=== PATIENT | female | born 1965 | race Caucasian/White ===

== ENCOUNTER 2019-07-03 09:52 | Inpatient (IN) | payer OTHER ==
[2019-07-02 21:30] VITALS: BP 137/88
[~2019-07-03] VITALS: Ht 162.6 cm; Wt 70.7 kg
--- NOTE | ~2019-07-03 | OP ---
[address] [address] OPERATIVE REPORT Name: ALYSSIA LOPEZ Room: [address] IN M.R.#: [id number] Admission: 07/03/19 Attend Phys: Luis Alberto Willett DO Discharge: Date of : 69 Report #: [id number] THIS REPORT FOR: //name// CC: Luis Alberto Alonzo NP DATE OF SERVICE: 07/03/2019 PREOPERATIVE DIAGNOSIS: Cholecystitis. POSTOPERATIVE DIAGNOSIS: Cholecystitis plus intraabdominal adhesions. PROCEDURE: Laparoscopic cholecystectomy converted to laparotomy and open cholecystectomy with lysis of adhesions lasting 1 hour. SURGEON: Luis Alberto Willett DO. GERM DRIER: Nathan Parra DO ANESTHESIA: General endotracheal. ESTIMATED BLOOD LOSS: 50 mL. COMPLICATIONS: None other than having to convert to open procedure. REFERRING PHYSICIAN: 1. Dr. Zhou Mendoza. 2. Althea Alonzo nurse practitioner. DESCRIPTION OF PROCEDURE: After obtaining proper consents and discussing risks and complications with the patient and family in the preoperative holding area, she was taken to the operating room, laid in the supine position, administered general endotracheal anesthetic. She was then prepped and draped in the usual sterile fashion. A timeout was performed. We confirmed the appropriate patient and procedure. Preoperative antibiotics were given. SCDs were in place. We then made a small supraumbilical skin incision through the patient's previous midline incision. This was carried down through the skin into the subcutaneous tissue using electrocautery for hemostasis. Once the fascia was encountered, it was grasped and elevated with Sonya clamps. I then grasped the peritoneum and this was opened sharply. I was then able to place a finger within the peritoneal cavity. There did appear to be multiple adhesions in this area; however, I was able to sweep my finger around enough where I felt that it was safe enough to place a blunt Robbie trocar through this hole. I then placed 2-0 [place] [address] OPERATIVE REPORT Name: ALYSSIA LOPEZ Room: [address] IN .R.#: [id number] Admission: 07/03/19 Attend Phys: Luis Alberto Willett DO Discharge: Date of : 69 Report #: [id number] Vicryl sutures in a [id number] fashion to secure the Robbie trocar. I then inserted the Robbie trocar and immediately identified adhesions throughout the abdominal cavity. I was able to see up over the liver and what appeared to be the gallbladder just underneath that, but other than that, I was unable to visualize anything else and the entire abdomen was full of adhesions. So very quickly, we determined that we would not be able to place any more ports because of the adhesions and we elected to convert to an open procedure as I had discussed with the patient in the office and also preoperatively in the preoperative holding area. At this point, we stopped the insufflation. The Robbie trocar was removed. I then made a right subcostal incision, which was carried down through the skin into the subcutaneous tissue using electrocautery for hemostasis. We then identified the rectus fascia. The fascia was opened out laterally to the oblique muscles as well. I then divided the rectus muscle using electrocautery. The posterior fascia and peritoneum were then identified, the fascia was opened, the peritoneum was then grasped and elevated with hemostats and sharply opened using Metzenbaum scissors. Once within the peritoneum, I was able to identify the liver and what appeared to be the gallbladder, but there were still quite a few adhesions in this area and it appeared that the colon and small bowel were adherent to the liver and gallbladder. Once the peritoneum was opened for the entire length of the incision, I then cautiously began taking down adhesions until I was able to visualize the gallbladder, the adhesions were from the abdominal wall just in this area in order to be able to take out the gallbladder. This took approximately one hour of dissection. I was then able to grasp and elevate the gallbladder and dissected free from the surrounding bowel using blunt dissection with my finger as well as Metzenbaum scissors and electrocautery to maintain hemostasis. Once the anterior portion of the gallbladder was freed, I then elected to take the gallbladder down in a dome down fashion. I then used electrocautery as well as blunt dissection with Metzenbaum scissors and right angle clamp as well in order to dissect the gallbladder all the way down until it was attached only by the cystic duct and cystic artery. The cystic artery was dissected free, was clipped proximally and distally, and then divided between clips. The gallbladder then remained only attached by the cystic duct and then, placed 3 clips proximally on the cystic duct using large Ligaclips. I then divided the cystic duct and passed the gallbladder off the specimen. We then assured hemostasis in the area using electrocautery. We copiously irrigated. I also checked to assure there was no leak of bile. Finding none, I then began to closing. We used a 0 PDS suture to close the posterior fascia and peritoneum together. We then reapproximated the muscles using a 2-0 Vicryl suture. The anterior fascia was then closed using a running 0 Prolene suture. The subcutaneous tissues were closed using 3-0 Vicryl suture. Skin was closed using yonny. We also closed the supraumbilical incision with the 2 previously placed 0 Vicryl sutures, plus 3 additional 0 Vicryl sutures. That skin incision was also closed using yonny. Sterile dressings were placed. The wounds were injected with 0.5% Marcaine without epinephrine. The patient was then awakened in the operating room and transported to recovery [place] [address] OPERATIVE REPORT Name: ALYSSIA LOPEZ Room: [address] IN [facility]#: [id number] Admission: 07/03/19 Attend Phys: Luis Alberto Willett DO Discharge: Date of : 69 Report #: [id number] Sponge, needle, and instrument counts were all correct x 3 at the end of the procedure. By: [id number] 1935Ayareli Willett DO /kobi
[~2019-07-03 09:52] MED LIST: ACETAMINOPHEN325 MG PO; AZITHROMYCIN PO; B12INJ PO; CENTRUM MU9 MG/15 ML PO; COLACE100 MG PO; FIBERCON625 M1 PO; FOLIC ACID0.8 MG PO; HARD NAILS2500 MCG PO; LAXATIVE5 MG PO; LEXAPRO20 MG; MAGNESIUM500 MG PO; MILK OF MA2400 MG/10 PO; MIRALAX17 GM PO; NOHOMEMEDICATIONS; OMEGA-3 KRILL1 EACH PO; PREDNISONE 10 M10 MG PO; REMICADE 1100 MG/VIA IV; SERTRALINE HCL50 MG PO; VITAMIN D3400 UNIT PO; WELLBUTRIN 75 M75 M1 PO; [UNRECOGNIZED DRUG - OTHER] PO
[2019-07-03 16:00] VITALS: BP 123/75
--- NOTE | 2019-07-03 17:15 | NUR ---
PATIENT ADMITTED FROM SURGERY. OPEN CHOLEY. DRESSING TO ABD INTACT, SMALL AMOUNT OF DRAINAGE NOTED TO UMBILICAL DRESSING. NO FURTHER SKIN BREAKDOWN NOTED. IV SL. [address], 02 SAT 95% ON CONT PULSE OX. PATIENT REMINDED TO TAKE DEEP BREATHS. PRN TRAMADOL GIVEN FOR ABD PAIN, PATIENT SLEEPING AFTER GIVEN. CLEAR LIQUID DIET AND MAY ADVANCE TOLERATED. SCD'S IN PLACE. ORIENTED TO CALL LIGHT. CALL LIGHT WITHIN REACH, WILL CONTINUE TO MONITOR.
[2019-07-03 21:30] VITALS: BP 137/88
[2019-07-04] VITALS: BP 114/75
[2019-07-04 04:00] VITALS: BP 120/69
[2019-07-04 05:49] LABS: ABSOLUTE LYMPHOCYTES 1.7 thou/uL (0.8-5.3); ABSOLUTE MONOCYTES 1.1 thou/uL (0.0-1.2); ABSOLUTE NEUTROPHILS 8.2 thou/uL (1.6-8.1); BASOPHILS 0.1 %; HEMATOCRIT 37.5 % (37.0-47.0); HEMOGLOBIN 12.1 gm/dL (12.0-15.0); LYMPHOCYTES 15.2 %; MCH 30.6 pg (26.0-34.0); MCHC 32.3 g/dL (28.0-37.0); MCV 94.8 fL (80.0-100.0); MONOCYTES 9.6 %; MPV 7.9 fl. (7.2-11.1); NUCLEATED RBCS 0 /100WBC; PLATELET COUNT* 220 thou/uL (150-400); POLYS 75.1 %; RBC 3.96 mil/uL (4.20-5.00); RDW-CV 14.2 % (10.5-14.5)
[2019-07-04 05:57] LABS: CALCIUM 8.4 mg/dL (8.5-10.1); CREATININE 0.6 mg/dL (0.6-1.3); POTASSIUM 3.9 mmol/L (3.5-5.1)
--- NOTE | 2019-07-04 05:57 | NUR ---
PATIENT HAS SLEPT OFF AND ON DURING THE NIGHT. VSS ON 3L 02 VIA NASAL CANNULA. PATIENT IS UP WITH SBA TO THE BATHROOM. MEDICATIONS GIVEN ORDERED AND CHARTED. ASSESSMENT CHARTED. DRESSING TO ABDOMEN AND UMBILICAL AREA ARE C/D/I. IV IN LEFT FOREARM-SL. PATIENT INSTRUCTED TO USE CALL LIGHT WHEN NEEDING ASSISTANCE. HOURLY ROUNDS MADE. WILL CONTINUE WITH PLAN OF CARE AND NURSING TO MONITOR.
[2019-07-04 07:30] VITALS: BP 97/65
[2019-07-04 16:01] VITALS: BP 101/70
--- NOTE | 2019-07-04 16:04 | NUR ---
PATIENT UP AND AMBULATING AROUND HALLS WITHOUT DIFFICULTY. IS GIVEN AND PATIENT UTILIZING. IV REMAINS SL. ICE PACK TO ABD AND PILLOW FOR SPLINTING. DRESSING REMOVED AND REAPPLIED TO ABD ORDERED. PATIENT REPORTS BELCHING BUT HAS NOT PASSED FLATUS YET AT THIS TIME. PRN TRAMADOL AND TORADOL GIVEN FOR PAIN WITH GOOD RELIEF NOTED.
[2019-07-04 20:45] VITALS: BP 98/59
[2019-07-05] VITALS: BP 112/69
[2019-07-05 04:00] VITALS: BP 124/72
[2019-07-05 04:20] LABS: HEMATOCRIT 31.8 % (37.0-47.0); HEMOGLOBIN 10.8 gm/dL (12.0-15.0); MPV 6.9 fl. (7.2-11.1); RBC 3.49 mil/uL (4.20-5.00)
[2019-07-05 04:36] LABS: CALCIUM 8.2 mg/dL (8.5-10.1); CREATININE 0.5 mg/dL (0.6-1.3); POTASSIUM 3.2 mmol/L (3.5-5.1)
--- NOTE | 2019-07-05 05:38 | NUR ---
PATIENT HAS SLEPT OFF AND ON DURING THE NIGHT. VSS ON RA. PATIENT STILL HAS SOME C/O ABDOMINAL PAIN AND NOT PASSING GAS. MEDICATIONS GIVEN ORDERED AND CHARTED. PATIENT IS UP AD-BRANDEN. DRESSING TO ABDOMEN IS C/D/I. IV IN LEFT FOREARM-SL. PATIENT INSTRUCTED TO USE CALL LIGHT WHEN NEEDING ASSISTANCE. HOURLY ROUNDS MADE. WILL CONTINUE WITH PLAN OF CARE AND NURSING TO MONITOR.
[2019-07-05 07:15] VITALS: BP 126/74
--- NOTE | 2019-07-05 13:07 | PATH ---
[address] [address] PATHOLOGY RPT PROCEDURE Name: ALYSSIA DONALD Room: [address] IN .R.#: [id number] Admission: 07/03/19 Date of : 69 Discharge: Report #: [id number] Path Case #: [id number] [facility] Accession Number: [id number] . 01 Material submitted: . gallbladder - GALLBLADDER WITH CONTENTS . 01 Clinical history: . Calculus of gallbladder without cholecystitis without obstruction . 02 Diagnosis: Gallbladder with contents: - Chronic cholecystitis with cholesterolosis. See comment. (GREGG:pit; 07/05/2019) [facility] 07/05/2019 1050 Local . 02 Comment: No gallstones were identified in the submitted specimen. (GREGG:pit; 07/05/2019) . 02 Electronically signed: . Nguyễn Hi MD, Pathologist NPI- [id number] . 01 Gross description: . The specimen is received in formalin, labeled "Alyssia Donald gallbladder with contents". Received is a previously punctured gallbladder measuring 7.9 x 3.3 x 1.6 cm in greatest dimensions displaying a blue-joy serosal surface. Opening the specimen reveals a velvety, bile-stained mucosa with mild, diffuse cholesterolosis, and with a gallbladder wall thickness of 0.1 cm. Calculi are not present upon filtration of the gallbladder and specimen container, and no masses or lesions are noted grossly. Financial Administration Officer sections, to include the proximal margin, are submitted in cassette A1. (CAA; 07/04/2019) QAC/QAC 07/04/2019 0941 Local . 02 Pathologist provided ICD-10: K81.1, K82.4 . 02 CPT . 880693 Specimen Comment: A courtesy copy of this report has been sent to Specimen Comment: [phone], , . Specimen Comment: Report sent to ,DR DUMONT / DR BOWERS Performed at: [address] [facility] [address], [place] [id number] [place] [address] PATHOLOGY RPT PROCEDURE Name: ALYSSIA DONALD Room: [address] IN M.R.#: [id number] Admission: 07/03/19 Date of : 69 Discharge: Report #: [id number] Path Case #: [id number] MD Girish Rosario MD Phone: [phone] Performed at: 02 [facility] [address] [place], [place], [place] [id number] MD Nguyễn Hi MD Phone: [phone]
[2019-07-05 16:00] VITALS: BP 112/72
--- NOTE | 2019-07-05 17:17 | NUR ---
PT REMAINED ALERT AND ORIENTED. PT C/O PAIN AND NAUSEA MEDS GIVEN ORDERED. PT HAD BM TODAY. PT WLAKED HALLS. FALL RISK PRECAUTIONS IN PLACE. HOURLY ROUNDING COMPLETED. WILL CONTINUE TO MONITOR.
[2019-07-05 19:50] VITALS: BP 103/68
[2019-07-06 04:02] LABS: CALCIUM 8.2 mg/dL (8.5-10.1); CREATININE 0.6 mg/dL (0.6-1.3); POTASSIUM 3.2 mmol/L (3.5-5.1)
--- NOTE | 2019-07-06 06:25 | NUR ---
PT ALERT AND ORIENTED. VSS ON RA. ASSESSMENT DOCUMENTED. UP AD BRANDEN. MEDS GIVEN PER EMAR. PT GIVEN PAIN MEDS BOTH SCHLD AND PRN FOR NECK PAIN. PT ALSO GOT GAS X TO HELP TO WITH GAS PAIN. PT PASSING FLATUS. PT SLEPT OFF AND ON THIS SHIFT. PT AMBULATED THE HALLWAY MULTIPLE TIMES THIS AM. CALL LIGHT WITHIN REACH. HOURLY ROUNDINGS MADE. ANTICIPATED DC TODAY. WILL CONTINUE TO MONITOR.
[2019-07-06 07:30] VITALS: BP 111/71
[2019-07-06] MEDS ORDERED: TRAMADOL 50 MG50 MG PO (11:51)
[2019-07-06 12:01] VITALS: BP 111/71
--- NOTE | 2019-07-06 17:40 | NUR ---
ASSUMED CARE OF PATIENT AT APPROX 0730. ALERT AND ORIENTED X4. ASSESSMENT COMPLETED AND CHARTED. VSS ON ROOM AIR. PAIN MANAGED WITH ORAL MEDICATIONS. POTASSIUM REPLACED ORDERED. INCISION SITE ON ABDOMEN CLOSED WITH AUDIE AND INCISION SHOWS NO SIGNS OF INFECTION, OPEN TO AIR. PATIENT DISCHARGED AT 1445 WITH ALL PERSONAL BELONGINGS, PRESCRIPTION AND DISCHARGE INSTRUCTIONS.
== END 2019-07-06 14:45 | disposition home or self-care (01) | DRG 415 ==
LOC: M.SUR 09:52 → M.TBA 13:59 → M.ORTHSURG 13:59
PROVIDERS: Surgery; ADMIT Surgery
PROC: 0DNW0ZZ Release Peritoneum, Open Approach (ICD-10-PCS; principal; 2019-07-03)
PROC: 0FJ44ZZ Inspection of Gallbladder, Percutaneous Endoscopic Approach (ICD-10-PCS; principal; 2019-07-03)
PROC: 0FT40ZZ Resection of Gallbladder, Open Approach (ICD-10-PCS; principal; 2019-07-03)
DX: K80.10 Calculus of gallbladder with chronic cholecystitis without obstruction (principal); E87.1 Hypo-osmolality and hyponatremia; K50.90 Crohn's disease, unspecified, without complications; E87.6 Hypokalemia; Z88.6 Allergy status to analgesic agent; Z90.710 Acquired absence of both cervix and uterus; Z90.49 Acquired absence of other specified parts of digestive tract

== ENCOUNTER 2019-08-19 19:02 | Inpatient (IN) | payer OTHER ==
[~2019-08-19] VITALS: Ht 162.6 cm; Wt 82.3 kg
[~2019-08-19 19:02] MED LIST changes: +TRAMADOL 50 MG50 MG PO
[2019-08-19 19:16] VITALS: BP 139/98
[2019-08-19 20:09] LABS: ABSOLUTE BASOPHILS 0.1 thou/uL (0.0-0.2); ABSOLUTE LYMPHOCYTES 2.8 thou/uL (0.8-5.3); ABSOLUTE NEUTROPHILS 13.6 thou/uL (1.6-8.1); BASOPHILS 0.4 %; EOSINOPHILS 0.1 %; HEMATOCRIT 44.1 % (37.0-47.0); LYMPHOCYTES 16.1 %; MCH 30.6 pg (26.0-34.0); MCHC 34.1 g/dL (28.0-37.0); MCV 89.7 fL (80.0-100.0); MONOCYTES 5.7 %; MPV 7.1 fl. (7.2-11.1); NUCLEATED RBCS 0 /100WBC; PLATELET COUNT* 472 thou/uL (150-400); POLYS 77.7 %; RBC 4.91 mil/uL (4.20-5.00); RDW-CV 14.2 % (10.5-14.5); WBC 17.6 thou/uL (4.0-11.0)
[2019-08-19 20:17] LABS: CALCIUM 10.6 mg/dL (8.5-10.1); POTASSIUM 3.8 mmol/L (3.5-5.1)
[2019-08-19 20:31] LABS: ALBUMIN 3.9 g/dL (3.4-5.0); TOTAL BILIRUBIN 0.5 mg/dL (<0.1-1.0); TOTAL PROTEIN 8.4 g/dL (6.4-8.2)
[2019-08-20 00:24] VITALS: BP 120/70
[2019-08-20 00:25] VITALS: BP 135/85
[2019-08-20 07:05] VITALS: BP 108/69
[2019-08-20 07:27] LABS: NUCLEATED RBCS 0 /100WBC; RDW-CV 14.3 % (10.5-14.5)
[2019-08-20 07:29] LABS: ABSOLUTE LYMPHOCYTES 1.7 thou/uL (0.8-5.3); ABSOLUTE MONOCYTES 0.8 thou/uL (0.0-1.2); BASOPHILS 0.5 %; EOSINOPHILS 0.5 %; HEMOGLOBIN 11.4 gm/dL (12.0-15.0); LYMPHOCYTES 19.4 %; MCH 30.4 pg (26.0-34.0); MCHC 33.6 g/dL (28.0-37.0); MCV 90.5 fL (80.0-100.0); MONOCYTES 9.7 %; MPV 7.5 fl. (7.2-11.1); PLATELET COUNT* 316 thou/uL (150-400); POLYS 69.9 %; RBC 3.76 mil/uL (4.20-5.00); WBC 8.6 thou/uL (4.0-11.0)
[2019-08-20 07:44] LABS: ALBUMIN 2.7 g/dL (3.4-5.0); CREATININE 0.8 mg/dL (0.6-1.3); MAGNESIUM 1.7 mg/dL (1.8-2.4); POTASSIUM 4.1 mmol/L (3.5-5.1); TOTAL BILIRUBIN 0.5 mg/dL (<0.1-1.0); TOTAL PROTEIN 6.1 g/dL (6.4-8.2)
[2019-08-20 08:29] LABS: ESR (SEDRATE) 16 mm/hr (0-30)
[2019-08-20 12:39] VITALS: BP 108/69
[2019-08-20 20:00] VITALS: BP 105/61
[2019-08-20 23:06] LABS: HEPATITIS B SURFACE AG Negative (Negative)
[2019-08-21] VITALS: BP 107/72
[2019-08-21 04:00] VITALS: BP 107/69
[2019-08-21 04:47] LABS: HEMATOCRIT 31.9 % (37.0-47.0); HEMOGLOBIN 10.6 gm/dL (12.0-15.0); MCH 30.2 pg (26.0-34.0); MCHC 33.3 g/dL (28.0-37.0); MCV 90.8 fL (80.0-100.0); MPV 7.4 fl. (7.2-11.1); RBC 3.52 mil/uL (4.20-5.00); RDW-CV 14.1 % (10.5-14.5); WBC 10.2 thou/uL (4.0-11.0)
[2019-08-21 05:06] LABS: ALBUMIN 2.5 g/dL (3.4-5.0); CALCIUM 8.3 mg/dL (8.5-10.1); CREATININE 0.6 mg/dL (0.6-1.3); MAGNESIUM 1.9 mg/dL (1.8-2.4); POTASSIUM 3.4 mmol/L (3.5-5.1); TOTAL BILIRUBIN 0.3 mg/dL (<0.1-1.0); TOTAL PROTEIN 5.6 g/dL (6.4-8.2)
[2019-08-21 05:54] LABS: URINE BILIRUBIN NEGATIVE (Negative); URINE BLOOD NEGATIVE (Negative); URINE CLARITY CLEAR; URINE COLOR YELLOW; URINE GLUCOSE-RANDOM NEGATIVE (Negative); URINE KETONES NEGATIVE (Negative); URINE LEUKOCYTES-REFLEX NEGATIVE (Negative); URINE NITRITE-REFLEX NEGATIVE (Negative); URINE PROTEIN NEGATIVE (Negative); URINE SPECIFIC GRAVITY >= 1.030 (1.005-1.030); URINE UROBILINOGEN 0.2 E.U./dl (0.2-1.0)
[2019-08-21 08:11] VITALS: BP 123/71
[2019-08-21 12:06] VITALS: BP 106/65
--- NOTE | 2019-08-21 12:06 | EKG ---
[place] [address] ELECTROCARDIOGRAM REPORT Name: CHANDAN LOPEZEN Britney Room: [address] ADM IN M.R.#: [id number] Admission: 08/19/19 Attend Phys: Leobardo Owusu, Discharge: Date of : 69 Report #: [id number] THIS REPORT FOR: //name// [facility] ED Test Date: 2019-08-19 Test Time: 23:20:13 Pat Name: ALYSSIA LOPEZ Department: Room: [address] Gender: F Teacher'S Aide: : 1965 Requested By: Lis Calloway Order Number: [id number] David MD: Koffi Yuo Measurements Intervals [place] Rate: 90 P: 51 IN: 170 QRS: 22 QRSD: 93 T: 0 QT: 404 QTc: 495 Interpretive Statements Sinus rhythm Borderline prolonged QT interval Compared to ECG 10/24/2006 13:28:17 ST (T wave) deviation no longer present Electronically Signed On 08-21-2019 12:06:29 FISHING TOOL SUPERVISOR by Koffi You [email or web address] <ELECTRONICALLY SIGNED> By: Koffi You MD, [facility] 08/21/19 1206 2320 2320 Koffi You MD, [facility] /EPI
[2019-08-21 16:44] VITALS: BP 107/66
[2019-08-21 20:00] VITALS: BP 116/75
[2019-08-22] VITALS: BP 115/67
[2019-08-22 04:30] VITALS: BP 120/72
[2019-08-22 05:41] LABS: HEMATOCRIT 29.1 % (37.0-47.0); HEMOGLOBIN 9.7 gm/dL (12.0-15.0); MCH 30.3 pg (26.0-34.0); MCHC 33.3 g/dL (28.0-37.0); MCV 90.9 fL (80.0-100.0); RBC 3.2 mil/uL (4.20-5.00); RDW-CV 14.2 % (10.5-14.5); WBC 8.7 thou/uL (4.0-11.0)
[2019-08-22 05:57] LABS: ALBUMIN 2.4 g/dL (3.4-5.0); CALCIUM 7.9 mg/dL (8.5-10.1); CREATININE 0.5 mg/dL (0.6-1.3); MAGNESIUM 1.9 mg/dL (1.8-2.4); POTASSIUM 3.1 mmol/L (3.5-5.1); TOTAL BILIRUBIN 0.5 mg/dL (<0.1-1.0); TOTAL PROTEIN 5.4 g/dL (6.4-8.2)
--- NOTE | 2019-08-22 06:53 | CON ---
[address] [address] CONSULTATION Name: ALYSSIA LOPEZ Room: [address] IN .R.#: [id number] Admission: 08/19/19 Attend Phys: Leobardo Owusu, Discharge: Date of : 69 Report #: [id number] THIS REPORT FOR: //name// CC: FAM unknown Leobardo Owusu DATE OF SERVICE: 08/20/2019 HISTORY OF PRESENT ILLNESS: This is a pleasant 54-year-old female with past medical history significant for cholelithiasis, who is presenting for evaluation of abdominal pain. The patient also has a history of Crohn's disease for which she follows up with Dr. Mendoza in the past, was treated with Remicade. Currently, she is not on any medication. The patient required open cholecystectomy in mid June due to extensive adhesions. The patient reports at this time around, she began experiencing epigastric abdominal pain that was localized, nonradiating. The pain became progressively severe over the last couple of days when she presented to the hospital. The patient reports this is associated with nausea and vomiting. The patient denies any fevers, chills, hematemesis, hematochezia or weight loss. PAST MEDICAL HISTORY: Crohn's disease, cholelithiasis. PAST SURGICAL HISTORY: Cholecystectomy in June. SOCIAL HISTORY: The patient denies smoking, uses alcohol occasionally. Denies any recreational drug use. FAMILY HISTORY: Significant for inflammatory bowel disease. REVIEW OF SYSTEMS: Comprehensive 10-point review of systems is negative except for what was mentioned in the history of present illness. PHYSICAL EXAMINATION: GENERAL: The patient is alert, awake, oriented x 3. HEENT: Pupils are equal, round, reactive to light and accommodation. Mucous membranes are moist. There is no congestion. LUNGS: Clear to auscultation bilaterally. CARDIOVASCULAR: Rate and rhythm regular, S1, S2 present. ABDOMEN: Soft. There is no distention. Mild tenderness and guarding is noted in the epigastric region. EXTREMITIES: Warm, well perfused, no edema. SKIN: Warm and dry. VITAL SIGNS: Temperature 37.1, pulse rate 81, blood pressure 108/69, pulse ox 97% on room air. LABORATORY DATA: Hemoglobin 11.4, hematocrit 34.0, WBC count 8.6, [place] [address] CONSULTATION Name: ALYSSIA LOPEZ Room: [address] IN [facility]#: [id number] Admission: 08/19/19 Attend Phys: Leobardo Owusu, Discharge: Date of : 69 Report #: [id number] count 316. Sodium 142, potassium 4.1, chloride 105, bicarbonate 29, BUN 8, creatinine 0.8, total bilirubin 0.5, AST 743, ALT 589, alkaline phosphatase 126. IMAGING: Abdominal ultrasound demonstrates a dilated common bile duct measuring up to 12 mm; calcification noted in the neck of the cystic duct felt to represent a dilated cystic duct remnant with stones. Mild intrahepatic ductal dilation also noted mildly prominent small bowel loops with fluid filled measuring up to 3.5 cm. Slight thickening of the small bowel along the midline anastomosis, small bowel follow through should be considered to evaluate these areas, prior history of cholecystectomy, appendectomy, hysterectomy and ileocolonic anastomosis in the left lower quadrant. ASSESSMENT AND PLAN: Pleasant 54-year-old female with past medical history significant for Crohn's and cholelithiasis is presenting with abdominal pain. The patient noted to have pancreatitis with CBD dilation and elevated AST, ALT, suggestive of obstructing stone. We will proceed with ERCP, sphincterotomy, stone extraction. With regard to her Crohn's disease, I would recommend starting her on a course of steroids, prednisone 40 mg p.o. to be tapered over the course of 2 months. The patient can choose to follow up with either Dr. Mendoza with our service for management of her Crohn's. Thank you for this consultation. <ELECTRONICALLY SIGNED> By: Mejia Martinez MD 08/22/19 0653 1331 1937Mejia Martinez MD /nt
[2019-08-22 16:48] VITALS: BP 115/69
[2019-08-23 04:00] VITALS: BP 121/77
[2019-08-23 04:37] LABS: HEMOGLOBIN 9.6 gm/dL (12.0-15.0); MCH 30.2 pg (26.0-34.0); MCHC 33.1 g/dL (28.0-37.0); MCV 91.3 fL (80.0-100.0); MPV 7.4 fl. (7.2-11.1); RBC 3.17 mil/uL (4.20-5.00); RDW-CV 14.4 % (10.5-14.5); WBC 12.7 thou/uL (4.0-11.0)
[2019-08-23 04:56] LABS: ALBUMIN 2.3 g/dL (3.4-5.0); CALCIUM 8.3 mg/dL (8.5-10.1); CREATININE 0.5 mg/dL (0.6-1.3); MAGNESIUM 1.8 mg/dL (1.8-2.4); POTASSIUM 3.7 mmol/L (3.5-5.1); TOTAL BILIRUBIN 0.5 mg/dL (<0.1-1.0); TOTAL PROTEIN 5.9 g/dL (6.4-8.2)
[2019-08-23 07:55] VITALS: BP 106/59
[2019-08-23 16:00] VITALS: BP 113/72
[2019-08-23 21:10] VITALS: BP 113/66
[2019-08-24 06:29] LABS: HEMATOCRIT 26.6 % (37.0-47.0); HEMOGLOBIN 8.7 gm/dL (12.0-15.0); MCH 29.7 pg (26.0-34.0); MCHC 32.7 g/dL (28.0-37.0); MCV 90.9 fL (80.0-100.0); MPV 8.1 fl. (7.2-11.1); RBC 2.93 mil/uL (4.20-5.00); RDW-CV 14.1 % (10.5-14.5); WBC 13.9 thou/uL (4.0-11.0)
[2019-08-24 06:45] LABS: CALCIUM 8.2 mg/dL (8.5-10.1); CREATININE 0.5 mg/dL (0.6-1.3); TOTAL BILIRUBIN 0.3 mg/dL (<0.1-1.0); TOTAL PROTEIN 5.6 g/dL (6.4-8.2)
[2019-08-24 08:00] VITALS: BP 105/63
[2019-08-24] MEDS ORDERED: HYDROCODON-ACE1 EAC7 PO (10:55)
[2019-08-24] MEDS ORDERED: ONDANSETRON HCL4 M2 PO (10:55)
[2019-08-24 15:30] VITALS: BP 107/59
[2019-08-24 20:00] VITALS: BP 114/74
[2019-08-25 04:17] LABS: ABSOLUTE EOSINOPHILS 0.1 thou/uL (0.0-0.7); ABSOLUTE LYMPHOCYTES 0.9 thou/uL (0.8-5.3); ABSOLUTE MONOCYTES 0.8 thou/uL (0.0-1.2); ABSOLUTE NEUTROPHILS 9.3 thou/uL (1.6-8.1); BASOPHILS 0.1 %; EOSINOPHILS 0.6 %; HEMATOCRIT 26.3 % (37.0-47.0); HEMOGLOBIN 8.5 gm/dL (12.0-15.0); LYMPHOCYTES 7.9 %; MCH 29.7 pg (26.0-34.0); MCHC 32.4 g/dL (28.0-37.0); MCV 91.6 fL (80.0-100.0); MONOCYTES 7.3 %; MPV 7.8 fl. (7.2-11.1); NUCLEATED RBCS 0 /100WBC; PLATELET COUNT* 255 thou/uL (150-400); POLYS 84.1 %; RBC 2.87 mil/uL (4.20-5.00); RDW-CV 14.3 % (10.5-14.5)
[2019-08-25 04:37] LABS: ALBUMIN 1.9 g/dL (3.4-5.0); CALCIUM 8.3 mg/dL (8.5-10.1); CREATININE 0.5 mg/dL (0.6-1.3); POTASSIUM 3.6 mmol/L (3.5-5.1); TOTAL BILIRUBIN 0.2 mg/dL (<0.1-1.0); TOTAL PROTEIN 5.5 g/dL (6.4-8.2)
[2019-08-25 07:50] VITALS: BP 124/72
[2019-08-25 16:00] VITALS: BP 123/72
[2019-08-25 19:40] VITALS: BP 137/68
[2019-08-26 04:40] LABS: ABSOLUTE EOSINOPHILS 0.1 thou/uL (0.0-0.7); ABSOLUTE LYMPHOCYTES 1.2 thou/uL (0.8-5.3); ABSOLUTE MONOCYTES 0.9 thou/uL (0.0-1.2); ABSOLUTE NEUTROPHILS 9.3 thou/uL (1.6-8.1); BASOPHILS 0.3 %; EOSINOPHILS 0.5 %; LYMPHOCYTES 10.2 %; MCHC 33.3 g/dL (28.0-37.0); MCV 90.2 fL (80.0-100.0); MONOCYTES 7.6 %; MPV 7.2 fl. (7.2-11.1); NUCLEATED RBCS 0 /100WBC; PLATELET COUNT* 314 thou/uL (150-400); POLYS 81.4 %; RDW-CV 14.1 % (10.5-14.5); WBC 11.5 thou/uL (4.0-11.0)
[2019-08-26 05:25] LABS: CALCIUM 8.5 mg/dL (8.5-10.1); CREATININE 0.5 mg/dL (0.6-1.3); MAGNESIUM 1.9 mg/dL (1.8-2.4); POTASSIUM 3.3 mmol/L (3.5-5.1)
[2019-08-26 07:58] VITALS: BP 120/64
[2019-08-26 19:40] VITALS: BP 112/69
[2019-08-27 05:07] LABS: HEMATOCRIT 27.3 % (37.0-47.0); HEMOGLOBIN 9.2 gm/dL (12.0-15.0); MCH 30.2 pg (26.0-34.0); MCHC 33.6 g/dL (28.0-37.0); MPV 7.2 fl. (7.2-11.1); RBC 3.03 mil/uL (4.20-5.00); RDW-CV 14.2 % (10.5-14.5); WBC 10.8 thou/uL (4.0-11.0)
[2019-08-27 05:08] LABS: CALCIUM 8.5 mg/dL (8.5-10.1); CREATININE 0.5 mg/dL (0.6-1.3); POTASSIUM 3.7 mmol/L (3.5-5.1)
[2019-08-27 07:40] VITALS: BP 122/74
[2019-08-27 17:16] VITALS: BP 110/62
[2019-08-27 19:40] VITALS: BP 114/82
[2019-08-28 07:51] VITALS: BP 110/63
[2019-08-28 08:03] LABS: CALCIUM 8.6 mg/dL (8.5-10.1); CREATININE 0.6 mg/dL (0.6-1.3); POTASSIUM 3.2 mmol/L (3.5-5.1)
[2019-08-28 16:33] VITALS: BP 124/68
[2019-08-28 19:50] VITALS: BP 112/73
[2019-08-29 04:34] LABS: ABSOLUTE EOSINOPHILS 0.2 thou/uL (0.0-0.7); ABSOLUTE LYMPHOCYTES 1.9 thou/uL (0.8-5.3); ABSOLUTE NEUTROPHILS 6.6 thou/uL (1.6-8.1); BASOPHILS 0.4 %; EOSINOPHILS 2.1 %; HEMATOCRIT 28.3 % (37.0-47.0); HEMOGLOBIN 9.5 gm/dL (12.0-15.0); LYMPHOCYTES 19.5 %; MCHC 33.4 g/dL (28.0-37.0); MCV 89.9 fL (80.0-100.0); MONOCYTES 10.2 %; MPV 7.1 fl. (7.2-11.1); NUCLEATED RBCS 0 /100WBC; PLATELET COUNT* 370 thou/uL (150-400); POLYS 67.8 %; RBC 3.15 mil/uL (4.20-5.00); RDW-CV 14.1 % (10.5-14.5); WBC 9.8 thou/uL (4.0-11.0)
[2019-08-29 05:29] LABS: CALCIUM 8.5 mg/dL (8.5-10.1); CREATININE 0.6 mg/dL (0.6-1.3); POTASSIUM 4.2 mmol/L (3.5-5.1)
[2019-08-29 07:41] VITALS: BP 119/74
[2019-08-29 20:07] VITALS: BP 102/66
[2019-08-30 05:03] LABS: CALCIUM 8.7 mg/dL (8.5-10.1); CREATININE 0.6 mg/dL (0.6-1.3); POTASSIUM 3.8 mmol/L (3.5-5.1)
[2019-08-30 07:55] VITALS: BP 104/53
[2019-08-30 15:51] VITALS: BP 105/49
[2019-08-30 20:00] VITALS: BP 112/74
[2019-08-31 07:50] VITALS: BP 111/72
[2019-08-31 16:00] VITALS: BP 112/54; BP 124/62
[2019-08-31 21:21] VITALS: BP 85/46
[2019-09-01 04:08] LABS: CALCIUM 8.9 mg/dL (8.5-10.1); CREATININE 0.7 mg/dL (0.6-1.3); POTASSIUM 3.6 mmol/L (3.5-5.1)
[2019-09-01 07:50] VITALS: BP 104/73
[2019-09-01 10:25] VITALS: BP 104/73
[2019-09-01] MEDS ORDERED: OXYCODONE HCL 55 MG PO (12:18)
== END 2019-09-01 14:55 | disposition home or self-care (01) | DRG 444 ==
LOC: M.ERS 19:02 → M.TBA-ER 23:58 → M.2W 23:58 → M.3W 23:58 → M.2W 08-20 00:23 → M.3W 08-22 08:50
PROVIDERS: Emergency Medicine; Internal Medicine; Surgery; ADMIT Family Medicine
PROC: 0F798ZZ Dilation of Common Bile Duct, Via Natural or Artificial Opening Endoscopic (ICD-10-PCS; principal; 2019-08-20)
PROC: 0DH97UZ Insertion of Feeding Device into Duodenum, Via Natural or Artificial Opening (ICD-10-PCS; 2019-08-25)
PROC: 05HY33Z Insertion of Infusion Device into Upper Vein, Percutaneous Approach (ICD-10-PCS; 2019-08-30)
DX: K80.50 Calculus of bile duct without cholangitis or cholecystitis without obstruction (principal); K85.90 Acute pancreatitis without necrosis or infection, unspecified; R65.10 Systemic inflammatory response syndrome (SIRS) of non-infectious origin without acute organ dysfunction; E44.0 Moderate protein-calorie malnutrition; R18.8 Other ascites; K50.90 Crohn's disease, unspecified, without complications; E87.1 Hypo-osmolality and hyponatremia; D64.9 Anemia, unspecified; N21.0 Calculus in bladder; Z79.899 Other long term (current) drug therapy; Z88.8 Allergy status to other drugs, medicaments and biological substances; Z90.89 Acquired absence of other organs; Z90.710 Acquired absence of both cervix and uterus; Z90.49 Acquired absence of other specified parts of digestive tract; Z68.31 Body mass index [BMI] 31.0-31.9, adult